=== PATIENT | female | born 2000 ===

== ENCOUNTER 2024-09-05 15:57 | Emergency (ER) | payer MEDICAID, SELFPAY ==
[2024-09-05 16:27] VITALS: BP 149/72; PULSE 111; RESP 18; TEMP 36.3; O2SAT 100; BMI 23.2
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
== END 2024-09-05 23:09 | disposition left against medical advice (07) ==
LOC: HO.ED 23:00
PROVIDERS: Emergency Provider Emergency Medicine
DX: S09.90XA Unspecified injury of head, initial encounter (principal); R51.9 Headache, unspecified; Y09 Assault by unspecified means; Y93.9 Activity, unspecified; Y92.9 Unspecified place or not applicable; Y99.8 Other external cause status
CPT/HCPCS: 99281; 99283